=== PATIENT | male | born 1965 | race Caucasian/White ===

== ENCOUNTER 2023-12-17 06:25 | Day surgery (SDC) | payer OTHER, SELFPAY ==
[2023-12-17 09:57] VITALS: BMI 30.4
[2023-12-17 09:58] VITALS: BP 138/82; BMI 30.4
[2023-12-17 12:06] VITALS: BP 125/87
[2023-12-17 12:20] VITALS: BP 130/90
[2023-12-17 12:35] VITALS: BP 136/91
== END 2023-12-17 12:45 | disposition home or self-care (01) ==
LOC: GI 06:25
PROVIDERS: ATTENDING PHYSICIAN Internal Medicine
DX: K44.9 Diaphragmatic hernia without obstruction or gangrene (principal); K31.89 Other diseases of stomach and duodenum
CPT/HCPCS: 43239; 88305; 88342

== ENCOUNTER 2025-06-17 11:04 | Emergency (ER) | payer OTHER, SELFPAY ==
[2025-06-17 11:18] VITALS: BP 167/102
[2025-06-17] MEDS: MORPHINE SULFATE 4 MG IV ×2 (11:53→14:33)
[2025-06-17] MEDS: ZOFRAN 4 MG IV (11:53)
[2025-06-17] MEDS: NSS 1000 IV (11:54)
[2025-06-17 11:57] VITALS: BMI 32.0
--- NOTE | 2025-06-17 12:10 | ED.GENMED ---
History of Present Illness
General
Chief Complaint: Urinary Symptoms
Source: patient
Time Seen by Provider: 06/17/25 11:47
History of Present Illness
History of Present Illness:
60-year-old male presents emergency department with a sensation of urinary frequency, urgency, and difficulty passing his urine. He states the last time he passed urine was sometime this morning. He also has developed pain in the right flank area.
He has had the symptoms on and off for some time but really returned within the last 12 hours. He denies fever, chills, chest pain, shortness of breath, hematuria, diarrhea, constipation, or other complaints
Past History
Past History
ED Past Medical History: Other (Esophageal blockage)
ED Past Surgical History: Other (Hernia)
Social History
Tobacco: Non-smoker
Alcohol: Occasional
Drug: None
Personal:
Living: with family
Phy Exam
Physical Exam
Physical Exam:
GENERAL: Alert , appears uncomfortable, wants to move around the room
EYE: pupils equal and reactive
NECK: Supple, no significant adenopathy.
ENT: o/p clr, mmm.
CARDIAC: Regular rate and rhythm .
LUNGS: Clear breath sounds bilaterally, no acute respiratory distress, no wheezes/rales/rhonchi
ABDOMEN: Soft, without focal tenderness, no r/g, no cvat
NEUROLOGICAL: Alert and oriented, no focal neuro deficits
SKIN: Warm and dry, skin intact.
MUSCULOSKELETAL: No edema, well perfused.
PSYCH: Normal and appropriate interaction.
Course
Orders/Labs/Results
Orders:
Orders
06/17/25 11:48
CT Abd/pel Without Iv Or Oral Urgent
Comment:
Reason For Exam: R sided flank pain
0.9% Sodium Chloride 1000 ml [Nss] 1,000 ml IV BOLUS
Morphine Sulfate 4 mg IV NOW STA
Ondansetron Injectable [Zofran] 4 mg IV NOW STA
06/17/25 12:00
Complete Blood Count/No Diff Urgent
Comprehensive Metabolic Panel Urgent
06/17/25 12:09
Ketorolac [Toradol] 15 mg IV NOW STA
06/17/25 13:47
Urinalysis Reflex To Culture Urgent
Date Specimen was Collected: 06/17/25
Time Specimen was Collected: 13:12
Urine Microscopic Reflex Cult Urgent
06/17/25 14:16
Morphine Sulfate 4 mg IV NOW STA
Abnormal Lab Results
06/17/25 06/17/25
12:00 13:47
MCH 31.2 H pg
(27.0-31.0)
Glucose 122 H mg/dl
(70-99)
Ur Occult Blood Reflex 4+ A
(Negative)
Urine Albumin (Reflex) 1+ A
(Neg - Trace)
06/17/25 12:00
06/17/25 12:00
Vital Signs
Initial and Last Documented VS:
Initial Vital Signs
Temp Pulse Resp BP Pulse Ox
97.7 F 61 20 167/102 99
06/17/25 11:18 06/17/25 11:18 06/17/25 11:18 06/17/25 11:18 06/17/25 11:18
Last Documented Vital Signs
Temp Pulse Resp BP Pulse Ox
97.7 F 72 20 145/73 96
06/17/25 11:18 06/17/25 14:37 06/17/25 11:18 06/17/25 14:37 06/17/25 14:37
*Pulse Oximetry
SaO2: 99
Oxygen Mode of Delivery: Room air
Update Note
Update Note:
Patient presents to the Emergency Department with urgency frequency flank pain
Number and Complexity of Problems Addressed at the Encounter
� Chronic conditions affecting care:
� Acute Exacerbation and/or Progression of Chronic Illness:
� Differential Diagnosis includes: But not limited to urinary retention, BPH, kidney stone, pyelonephritis, etc. etc.
Amount and/or Complexity of Data to be Reviewed and Analyzed
� I performed an independent evaluation of and my interpretation is:
EKG:
CT:Mild right hydronephrosis secondary to 3 mm x 6 mm calculus at the right ureterovesical junction. There is nonobstructive left nephrolithiasis.
2. Hepatomegaly and hepatic fatty infiltration.
3. Diverticulosis without diverticulitis.
4. Post repair of previously seen ventral hernia.
5. Diffuse wall thickening of the urinary bladder, question outlet obstruction
Xrays:
Laboratory Studies: Generally unremarkable
Other:
� Review of other/old records reveals:
� Clinical information was obtained by an independent historian:
� Prescriptions/Medications Considered but not given:
� Further testing considered but not performed:
Risk of Complications and/or Morbidity or Mortality of Patient Management
� Social determinants of health affecting care:
� Discussion with other providers (PCP, Hospitalists, Consultants, etc):
� Escalation of care including admission/observation vs risk of discharge considered: Bladder scan read 0 mL. I confirmed via bedside ultrasound, I do not appreciate bladder enlargement. Clinically suspect kidney stone.
Medicating now, studies ordered.
Case discussed with Dr. Mead I sent him CAT scan report as well. Agrees with plan for outpatient management assuming UA not consistent with infection. Long discussion with patient and family, given strainer, discussed with him importance of
follow-up and reasons return to the ER. Pain is markedly improved.
ED Attending Note
-
Portions of this chart may have been created with voice recognition software.� Occasional wrong word or��sound alike� substitutions may have occurred due to the inherent limitations of voice recognition software.
Discharge Plan
Departure
Patient with high blood pressure during this ER visit?: Yes
Condition: Good
Discharge Problem:
Kidney stone
Instructions: Kidney stones in adults, How to Strain Your Urine, BLOOD PRESSURE
Prescriptions:
New
tamsulosin 0.4 mg capsule
0.4 mg PO DAILY Qty: 30 0RF
ondansetron HCl 4 mg tablet
4 mg PO Q8H PRN (Reason: nausea and vomiting) Qty: 7 0RF
oxycodone-acetaminophen [Percocet] 5-325 mg tablet
1 tab PO Q4HPRN PRN (Reason: pain) Qty: 17 0RF
No Action
omeprazole 40 mg Capsule,Delayed Release(Dr/Ec)
40 mg PO DAILY
albuterol sulfate [ProAir HFA] 90 mcg/actuation Hfa Aerosol Inhaler
2 puff INHALATION 6XD PRN (Reason: ASTHMA )
Patient Comments:
'about a year ago'
Dupixent Pen 200 mg/1.14 mL Pen Injector
400 mg SC WEEKLY
Referrals:
Abby Smith PA [Family Provider, Family Practice]
Andra Mead MD [Non-Admitting Privileges, Urology]
Adi Mead MD [Active, Urology] - Follow up in 2-3 days
Activity Restrictions/Additional Instructions:
IF YOU DEVELOP FEVER, CHILLS, VOMITING, DIFFICULTY URINATING, RECURRENT PAIN, OR OTHER WORRISOME SIGNS, GO TO THE ER IMMEDIATELy!
Interventions
Interventions:
*General Assessment Last Done: 06/17/25 11:18
*Neglect/Abuse Screening Last Done: 06/17/25 11:18
*ED COVID-19 Vaccine History Last Done: 06/17/25 11:58
*ED Influenza Vaccine History Last Done: 06/17/25 11:58
[facility] Risk Assessment Tool Last Done: 06/17/25 12:30
Discharge Date and Time
Print Language: ROMANIAN
[2025-06-17 12:13] LABS: Hematocrit 46.3 % (39.0-52.0); Hemoglobin 15.7 g/dL (13.0-18.0); Mean Corp Hgb Conc. 33.9 g/dL (33.0-37.0); Mean Corpuscular Volume 91.9 fL (80.0-94.0); Platelet Count 240 10^3/uL (130-400); Red Cell Dist. Width 13.1 % (11.5-14.5)
[2025-06-17] MEDS: TORADOL 15 MG IV (12:16)
[2025-06-17 12:38] LABS: ALT (SGPT) 49 U/L (0-50); AST (SGOT) 35 U/L (17-59); Albumin 4.5 g/dl (3.5-5.0); Alkaline Phosphatase 78 U/L (38-126); Blood Urea Nitrogen 17 mg/dl (9-20); Calcium 9.1 mg/dl (8.4-10.2); Carbon Dioxide 26 mmol/L (22-30); Chloride 105 mmol/L (98-107); Estimated Creatinine Clearance 94 ml/min; Glucose 122 mg/dl (70-99); Potassium 4.5 mmol/L (3.5-5.1); Sodium 139 mmol/L (135-145); Total Protein 7.4 g/dl (6.3-8.2); eGFR > 60.00
[2025-06-17 14:05] LABS: Urine Character Slightly Cloudy (Clear)
[2025-06-17 14:35] VITALS: BP 145/73
[2025-06-17 14:37] VITALS: BP 145/73
[2025-06-17] MEDS: FLOMAX 0.4 MG PO (15:15)
[2025-06-17 15:23] LABS: Urine Red Blood Cell 0-2 /HPF (0-2); Urine White Cell 0-2 /HPF (0-5)
== END 2025-06-17 17:30 | disposition home or self-care (01) ==
LOC: EMR 11:04
PROVIDERS: EMERGENCY PHYSICIAN Emergency Medicine; FAMILY PHYSICIAN Physician Assistant Medical
DX: N13.2 Hydronephrosis with renal and ureteral calculous obstruction (principal); K76.0 Fatty (change of) liver, not elsewhere classified; K57.30 Diverticulosis of large intestine without perforation or abscess without bleeding; R16.0 Hepatomegaly, not elsewhere classified; Z88.6 Allergy status to analgesic agent; Z91.0110 Allergy to milk products, unspecified; Z91.018 Allergy to other foods; Z91.048 Other nonmedicinal substance allergy status
CPT/HCPCS: 99284; 96374; 96375 ×2; 96361; 96376; 74176; 80053; 81003; 81015; 85027